=== PATIENT | male | born 1970 | race Caucasian/White ===

== ENCOUNTER 2020-05-21 13:39 | Emergency (ER) | payer BC, SELFPAY ==
[2020-05-21 13:52] VITALS: BP 138/105; PULSE 73; RESP 14; TEMP 37; O2SAT 98; BMI 35.4
--- NOTE | 2020-05-21 13:54 | W.ED.CHESTPA ---
HPI - Chest Pain General: Chief Complaint: Chest Pain Stated Complaint: cp, bp high Time Seen by Provider: 05/21/20 13:51 PFSH ED PFSH: Social History Smoking and tobacco status: former smoker Course Vital Signs: Vital signs: Vital Signs Temperature 98.6 F 05/21/20 13:52 Pulse Rate 73 05/21/20 13:52 Respiratory Rate 14 05/21/20 13:52 Blood Pressure 138/105 05/21/20 13:52 Pulse Oximetry 98 05/21/20 13:52 MDM - Chest Pain Lab Data: Labs: Lab Results 05/21/20 05/21/20 05/21/20 Range/Units 13:58 13:58 13:58 WBC 6.6 (4.0-10.0) 10^3/ uL RBC 4.68 (4.1-5.3) 10^6/u L Hgb 14.4 (11.7-16.6) g/dL Hct 44.5 (42.0-52.0) % MCV 95.1 H (80-94) fL MCH 30.8 (28.0-34.0) pg MCHC 32.4 (30.0-36.0) g/dL RDW 12.2 (12.1-15.1) % Plt Count 213 (130-400) 10^3/c mm MPV 12.1 H (7.4-10.4) fL Neut % (Auto) 52.8 % Lymph % (Auto) 34.3 % [place] % (Auto) 8.3 % Eos % (Auto) 3.8 % Baso % (Auto) 0.5 % Neut # (Auto) 3.5 (1.8-7.7) 10^3/u L Lymph # (Auto) 2.3 (0.8-4.8) 10^3/u L [place] # (Auto) 0.6 (0.2-0.9) 10^3/u L Eos # (Auto) 0.3 (0.0-0.8) 10^3/u L Baso # (Auto) 0.0 (0.0-0.1) 10^3/u L Nucleated RBC % (a uto) 0 % Nucleated RBCs # 0.0 /100WBC PT 11.50 (10.5-13.3) SECO NDS INR 0.82 (0.8-1.2) Sodium 140 (136-145) mmol/L Potassium 4.5 (3.5-5.1) mmol/L Chloride 103 (98-107) mmol/L Carbon Dioxide 25 (22-29) mmol/L Anion Gap 16.5 (5-19) BUN 11 (6-20) mg/dL Creatinine 0.9 (0.7-1.2) mg/dL GFR Calculation 88.6 L (90-130) mL/min Glucose 79 (65-115) mg/dL Calculated Osmolal ity 285 (285-295) mOsm/k g Calcium 10.0 (8.5-10.5) mg/dL Total Bilirubin 0.4 (0.15-1.2) mg/dL AST 17 (0-40) U/L ALT 20 (0-41) U/L Alkaline Phosphata se 61 (40-130) IU/L Troponin T Baselin e (0-15) ng/L Troponin T 120 Min [place] (0-15) ng/L Delta Troponin T (0-10) ABS# NT-Pro-B Natriuret Pep 212 H (0-125) pg/mL Total Protein 7.3 (6.6-8.7) g/dL Albumin 4.4 (3.5-5.2) g/dL Globulin 2.9 (1.3-4.6) g/dL 05/21/20 05/21/20 Range/Units 13:58 16:08 WBC (4.0-10.0) 10^3/ uL RBC (4.1-5.3) 10^6/u L Hgb (11.7-16.6) g/dL Hct (42.0-52.0) % MCV (80-94) fL MCH (28.0-34.0) pg MCHC (30.0-36.0) g/dL RDW (12.1-15.1) % Plt Count (130-400) 10^3/c mm MPV (7.4-10.4) fL Neut % (Auto) % Lymph % (Auto) % [place] % (Auto) % Eos % (Auto) % Baso % (Auto) % Neut # (Auto) (1.8-7.7) 10^3/u L Lymph # (Auto) (0.8-4.8) 10^3/u L [place] # (Auto) (0.2-0.9) 10^3/u L Eos # (Auto) (0.0-0.8) 10^3/u L Baso # (Auto) (0.0-0.1) 10^3/u L Nucleated RBC % (a uto) % Nucleated RBCs # /100WBC PT (10.5-13.3) SECO NDS INR (0.8-1.2) Sodium (136-145) mmol/L Potassium (3.5-5.1) mmol/L Chloride (98-107) mmol/L Carbon Dioxide (22-29) mmol/L Anion Gap (5-19) BUN (6-20) mg/dL Creatinine (0.7-1.2) mg/dL GFR Calculation (90-130) mL/min Glucose (65-115) mg/dL Calculated Osmolal ity (285-295) mOsm/k g Calcium (8.5-10.5) mg/dL Total Bilirubin (0.15-1.2) mg/dL AST (0-40) U/L ALT (0-41) U/L Alkaline Phosphata se (40-130) IU/L Troponin T Baselin e 6 (0-15) ng/L Troponin T 120 Min [place] 6.00 (0-15) ng/L Delta Troponin T 0 (0-10) ABS# NT-Pro-B Natriuret Pep (0-125) pg/mL Total Protein (6.6-8.7) g/dL Albumin (3.5-5.2) g/dL Globulin (1.3-4.6) g/dL Discharge Plan Discharge Patient Disposition: Home, Self-Care Clinical Impression: Chest pain Qualifiers: Chest pain type: unspecified Qualified Code(s): R07.9 - Chest pain, unspecified Condition: Stable Prescriptions: No Action omeprazole 40 mg capsule,delayed release(DR/EC) 40 mg PO DAILY RF: 0 Aspir-81 81 mg Tablet,Delayed Release (Dr/Ec) 81 mg PO DAILY RF: 0 nitroglycerin 0.4 mg tablet, sublingual 0.4 mg sublingual PRN PRN (Reason: CHEST PAINS) RF: 0 Vitamin D2 1,250 mcg (50,000 unit) Capsule 1,250 mcg PO DAILY RF: 0 fluoxetine 20 mg capsule 20 mg PO DAILY RF: 0 buspirone 15 mg tablet 15 mg PO DAILY RF: 0 Discharge Orders: Discharge Order (Routine); Ordered 05/21/20 Ordered By: Eric Marcelo Referrals: Damian Mayen DO [Primary Care Provider] - Coding Level of Care Code ED Vegetable Grader for Nicho Saucedo
--- NOTE | 2020-05-21 14:10 | ECG_ITS ---
[facility] ED Test Date: 2020-05-21 Pat Name: Jorge Kirkland Department: Room: Gender: Male Managing Editor: : 1970 Requested By: Eric Alcantar Order Number: [id number] Jodie MD: Mariluz Yi M.D. Measurements Intervals [place] Rate: 67 P: 52 TN: 125 QRS: 1 QRSD: 141 T: -8 QT: 403 QTc: 427 Interpretive Statements SINUS RHYTHM RIGHT BUNDLE BRANCH BLOCK [120+ ms QRS DURATION, UPRIGHT V1, 40+ ms S IN I/aVL/V4/V5/V6] Compared to ECG 05/13/2018 16:59:20 No significant changes Electronically Signed On 05-22-2020 18:31:44 CDT by Mariluz Yi M.D. [id number]
--- NOTE | 2020-05-21 14:10 | XRR_ITS ---
PROCEDURE INFORMATION: Exam: XR Chest, 1 View Exam date and time: 05/21/2020 2:11 PM Age: 50 years old Clinical indication: Chest pain; Additional info: Cp TECHNIQUE: Imaging protocol: XR of the chest Views: 1 view. COMPARISON: No relevant prior studies available. FINDINGS: Lungs: Unremarkable. No consolidation. Pleural space: Unremarkable. No pleural effusion. No pneumothorax. Heart/Mediastinum: Unremarkable. No cardiomegaly. Bones/joints: Unremarkable. XR/XR chest 1V portable [id number] IMPRESSION: No acute findings.
[2020-05-21 14:28] LABS: Basophils % 0.5 %; Eosinophils # 0.3 10^3/uL (0.0-0.8); Eosinophils % 3.8 %; Hematocrit 44.5 % (42.0-52.0); Hemoglobin 14.4 g/dL (11.7-16.6); Lymphocytes # 2.3 10^3/uL (0.8-4.8); Lymphocytes % 34.3 %; Mean Corpuscular HGB Conc 32.4 g/dL (30.0-36.0); Mean Corpuscular Hemoglobin 30.8 pg (28.0-34.0); Mean Corpuscular Volume 95.1 fL (80-94); Mean Platelet Volume 12.1 fL (7.4-10.4); Monocytes # 0.6 10^3/uL (0.2-0.9); Monocytes % 8.3 %; Neutrophils # 3.5 10^3/uL (1.8-7.7); Neutrophils % 52.8 %; Nucleated Red Blood Cells % 0 %; Platelet Count 213 10^3/cmm (130-400); Red Blood Count 4.68 10^6/uL (4.1-5.3); Red Cell Distribution Width 12.2 % (12.1-15.1); White Blood Count 6.6 10^3/uL (4.0-10.0)
[2020-05-21 14:36] LABS: INR 0.82 (0.8-1.2)
[2020-05-21 14:44] LABS: Troponin(5th) Baseline 6 ng/L (0-15)
[2020-05-21 14:53] LABS: Alanine Aminotransferase 20 U/L (0-41); Albumin Level 4.4 g/dL (3.5-5.2); Alkaline Phosphatase 61 IU/L (40-130); Anion Gap 16.5 (5-19); Aspartate Amino Transferase 17 U/L (0-40); Blood Urea Nitrogen 11 mg/dL (6-20); Carbon Dioxide 25 mmol/L (22-29); Chloride 103 mmol/L (98-107); Globulin 2.9 g/dL (1.3-4.6); Glomerular Filtration Rate 88.6 mL/min (90-130); Glucose 79 mg/dL (65-115); NT Pro B Type Natriuretic Pept 212 pg/mL (0-125); Osmolality Calculated 285 mOsm/kg (285-295); Potassium 4.5 mmol/L (3.5-5.1); Sodium 140 mmol/L (136-145); Total Bilirubin 0.4 mg/dL (0.15-1.2); Total Protein 7.3 g/dL (6.6-8.7)
--- NOTE | 2020-05-21 16:10 | ECG_ITS ---
[facility] Test Date: 2020-05-21 Pat Name: Jorge Kirkland Department: Room: Gender: Male Messenger Floorperson: : 1970 Requested By: Eric Alcantar Order Number: [id number] Jodie MD: Mariluz Yi M.D. Measurements Intervals [place] Rate: 66 P: 48 FL: 126 QRS: 6 QRSD: 142 T: -8 QT: 420 QTc: 441 Interpretive Statements SINUS RHYTHM INTRAVENTRICULAR CONDUCTION DELAY [130+ ms QRS DURATION] Compared to ECG 05/21/2020 13:49:28 Intraventricular conduction delay now present Right bundle-branch block no longer present Electronically Signed On 05-22-2020 18:40:20 CDT by Mariluz Yi M.D. [id number]
[2020-05-21 16:28] LABS: Troponin 5 2HR Delta 0 ABS# (0-10)
== END 2020-05-21 16:55 | disposition home or self-care (01) ==
PROVIDERS: Emergency Provider Family Medicine; PCP Internal Medicine
DX: R07.9 Chest pain, unspecified (principal); Z79.82 Long term (current) use of aspirin; Z87.891 Personal history of nicotine dependence
CPT/HCPCS: 12345; 71045; 80053; 83880; 84484; 85025; 85610; 93005; 99281; 99284

== ENCOUNTER 2021-04-19 09:25 | Emergency (ER) | payer OTHER, BC, SELFPAY ==
[2021-04-19 09:34] VITALS: BP 152/100; PULSE 77; RESP 15; TEMP 36.4; O2SAT 98; BMI 36.9
[2021-04-19 09:40] VITALS: BP 152/100; PULSE 78; RESP 21; O2SAT 97
--- NOTE | 2021-04-19 09:40 | ED_ITS ---
HPI - Chest Pain General: Chief Complaint: Chest Pain Stated Complaint: CP Time Seen by Provider: 04/19/21 09:36 History of Present Illness: HPI narrative: 50-year-old male presents emergency room with a complaint of chest pain. [facility] he was complaining of intermittent chest pain for the last month as well as some occasional dizziness. He felt this was stress related [facility]. He has not had any previously known history of coronary artery disease he is not diabetic. MD complaint: chest discomfort Onset (ago): hour(s) Timing of current episode: episodic Onset: during rest Pain location: left chest Pain radiation: none Severity: mild Quality: aching and heaviness Relieving factors: nothing Exacerbating factors: nothing Associated symptoms: Deny abdominal pain, dyspnea, fever(s), nausea or vomiting Review of Systems Const: Denies: fever(s), chills, body aches, change in appetite, fatigue or malaise ENMT: Denies: throat pain, ear or mastoid pain, nasal discharge or nasal congestion Card: Denies: chest pain, edema, dyspnea on exertion or orthopnea Resp: Denies: dyspnea, productive cough or non-productive cough GI: Denies: abdominal pain, nausea, vomiting, hematemesis, coffee ground emesis, diarrhea, constipation, bloating, hematochezia or melena : Denies: flank pain, dysuria, urinary frequency or urinary urgency Skin/Breast: Denies: rash or pruritus PFSH ED PFSH: Social History Smoking and tobacco status: light tobacco smoker Alcohol intake: never Substance/Drug Use: never Physical Exam Const: COMMON NORMALS: no acute distress GENERAL APPEARANCE: cooperative and comfortable ORIENTATION/CONSCIOUSNESS: Yes awake, Yes oriented to person, Yes oriented to place and Yes oriented to time HENMT: COMMON NORMALS: normocephalic, atraumatic and hearing grossly normal bilaterally HEAD & SCALP: normocephalic and atraumatic Neck/C-Spine: COMMON NORMALS: full ROM, no lymphadenopathy, supple and no JVD Lymph: LYMPHATIC: no lymphadenopathy noted and no lymphedema noted Resp: COMMON NORMALS: normal respiratory effort, No retractions, No use of accessory muscles and clear to auscultation bilaterally AUSCULTATION: clear to auscultation bilaterally Cardio: COMMON NORMALS: no JVD, regular rate, regular rhythm and No murmurs present (Cardio) RATE: regular rate RHYTHM: regular rhythm GI: COMMON NORMALS: Soft to palpation and No hepatosplenomegaly present AUSCULTATION: Yes normoactive bowel sounds PALPATION: Yes Soft to palpation, No Tenderness to palpation present (GI), No Guarding due to palpation present (GI) and Yes No hepatosplenomegaly present Extremity: COMMON NORMALS: normal to inspection, capillary refill normal, no clubbing, cyanosis or edema, no calf tenderness and no pedal edema Neuro: SENSORIUM/ORIENTATION: Yes oriented to person, Yes oriented to place and Yes oriented to time Skin: COMMON NORMALS: no rashes or lesions noted GENERAL SKIN EXAM: no rashes or lesions noted Course Vital Signs: Vital signs: Vital Signs Temperature 74 F L 04/19/21 12:00 Pulse Rate 67 04/19/21 13:25 Respiratory Rate 18 04/19/21 12:00 Blood Pressure 128/88 04/19/21 13:25 Pulse Oximetry 98 04/19/21 13:25 MDM - Chest Pain MDM Narrative: Medical decision making narrative: Reviewed serial enzymes the patient. We will go ahead and discharge him home [facility] unfortunately we can schedule that for him we will need to do that through the [facility]. Lab Data: Labs: Lab Results 04/19/21 04/19/21 04/19/21 Range/Units 09:51 09:51 09:51 WBC 6.1 (4.0-10.0) 10^3/ uL RBC 4.42 (4.1-5.3) 10^6/u L Hgb 14.1 (11.7-16.6) g/dL Hct 42.9 (42.0-52.0) % MCV 97.1 H (80-94) fL MCH 31.9 (28.0-34.0) pg MCHC 32.9 (30.0-36.0) g/dL RDW 12.6 (12.1-15.1) % Plt Count 190 (130-400) 10^3/c mm MPV 11.6 H (7.4-10.4) fL Neut % (Auto) 50.7 % Lymph % (Auto) 33.9 % [place] % (Auto) 10.2 % Eos % (Auto) 4.4 % Baso % (Auto) 0.5 % Neut # (Auto) 3.07 (1.8-7.7) 10^3/u L Lymph # (Auto) 2.1 (0.8-4.8) 10^3/u L [place] # (Auto) 0.6 (0.2-0.9) 10^3/u L Eos # (Auto) 0.3 (0.0-0.8) 10^3/u L Baso # (Auto) 0.0 (0.0-0.1) 10^3/u L Nucleated RBC % (a uto) 0 % Nucleated RBCs # 0.0 /100WBC Sodium Cancelled Potassium Cancelled Chloride Cancelled Carbon Dioxide Cancelled Anion Gap Cancelled BUN Cancelled Creatinine Cancelled GFR Calculation Cancelled Glucose Cancelled Calculated Osmolal ity Cancelled Calcium Cancelled Total Bilirubin Cancelled AST Cancelled ALT Cancelled Alkaline Phosphata se Cancelled Troponin T Baselin e Cancelled Troponin T 120 Min [place] (0-15) ng/L Delta Troponin T (0-10) ABS# Total Protein Cancelled Albumin Cancelled Globulin Cancelled 04/19/21 04/19/21 04/19/21 Range/Units 10:19 10:19 11:50 WBC (4.0-10.0) 10^3/ uL RBC (4.1-5.3) 10^6/u L Hgb (11.7-16.6) g/dL Hct (42.0-52.0) % MCV (80-94) fL MCH (28.0-34.0) pg MCHC (30.0-36.0) g/dL RDW (12.1-15.1) % Plt Count (130-400) 10^3/c mm MPV (7.4-10.4) fL Neut % (Auto) % Lymph % (Auto) % [place] % (Auto) % Eos % (Auto) % Baso % (Auto) % Neut # (Auto) (1.8-7.7) 10^3/u L Lymph # (Auto) (0.8-4.8) 10^3/u L [place] # (Auto) (0.2-0.9) 10^3/u L Eos # (Auto) (0.0-0.8) 10^3/u L Baso # (Auto) (0.0-0.1) 10^3/u L Nucleated RBC % (a uto) % Nucleated RBCs # /100WBC Sodium 139 Potassium 4.5 Chloride 105 Carbon Dioxide 25 Anion Gap 13.5 BUN 9 Creatinine 0.8 GFR Calculation 101.5 Glucose 83 Calculated Osmolal ity 286 Calcium 8.7 Total Bilirubin 0.4 AST 21 ALT 31 Alkaline Phosphata se 55 Troponin T Baselin e 6 Troponin T 120 Min [place] 6.00 (0-15) ng/L Delta Troponin T 0 (0-10) ABS# Total Protein 6.0 L Albumin 3.8 Globulin 2.2 Discharge Plan Discharge Patient Disposition: Home Clinical Impression: Atypical chest pain, Anxiety Condition: Stable Prescriptions: No Action Vitamin D3 25 mcg (1,000 unit) Capsule 25 mcg PO DAILY RF: 0 omeprazole 40 mg capsule,delayed release(DR/EC) 40 mg PO DAILY RF: 0 aspirin [Aspir-81] 81 mg Tablet,Delayed Release (Dr/Ec) 81 mg PO DAILY RF: 0 nitroglycerin 0.4 mg tablet, sublingual 0.4 mg sublingual PRN PRN (Reason: CHEST PAINS) RF: 0 fluoxetine 20 mg capsule 20 mg PO DAILY RF: 0 buspirone 15 mg tablet 15 mg PO DAILY RF: 0 Discharge Orders: Discharge ED (Routine); Ordered 04/19/21 Ordered By: Raúl Medina Referrals: Damian Mayen DO [Primary Care Provider] - Discharge Diet: Usual diet Discharge Activity: Resume usual activity Patient Instructions: Opioid Safety Activity Restrictions/Additional Instructions: Case management will call with an appointment for cardiac stress testing. Coding Level of Care Code ED Shade Cutter for Nicho Saucedo
--- NOTE | 2021-04-19 09:46 | XRR_ITS ---
PROCEDURE INFORMATION: Exam: XR Chest Exam date and time: 04/19/2021 9:52 AM Age: 50 years old Clinical indication: Chest pressure; Patient HX: Chest pain x 1 month TECHNIQUE: Imaging protocol: XR of the chest. Views: 1 view. COMPARISON: CR XR chest 1V portable [id number] 05/21/2020 2:19 PM FINDINGS: Lungs: Unremarkable. No consolidation. Pleural spaces: Unremarkable. No pleural effusion. No pneumothorax. Heart/Mediastinum: Unremarkable. No cardiomegaly. Bones/joints: Unremarkable. XR/XR chest 1V portable [id number] IMPRESSION: No significant abnormality.
[2021-04-19 10:01] LABS: Basophils % 0.5 %; Eosinophils # 0.3 10^3/uL (0.0-0.8); Eosinophils % 4.4 %; Hematocrit 42.9 % (42.0-52.0); Hemoglobin 14.1 g/dL (11.7-16.6); Lymphocytes # 2.1 10^3/uL (0.8-4.8); Lymphocytes % 33.9 %; Mean Corpuscular HGB Conc 32.9 g/dL (30.0-36.0); Mean Corpuscular Hemoglobin 31.9 pg (28.0-34.0); Mean Corpuscular Volume 97.1 fL (80-94); Mean Platelet Volume 11.6 fL (7.4-10.4); Monocytes # 0.6 10^3/uL (0.2-0.9); Monocytes % 10.2 %; Neutrophils # 3.07 10^3/uL (1.8-7.7); Neutrophils % 50.7 %; Nucleated Red Blood Cells % 0 %; Platelet Count 190 10^3/cmm (130-400); Red Blood Count 4.42 10^6/uL (4.1-5.3); Red Cell Distribution Width 12.6 % (12.1-15.1); White Blood Count 6.1 10^3/uL (4.0-10.0)
[2021-04-19 10:26] VITALS: BP 131/84; PULSE 72; RESP 26; O2SAT 94
[2021-04-19 10:46] LABS: Alanine Aminotransferase 31 U/L (0-41); Albumin Level 3.8 g/dL (3.5-5.2); Alkaline Phosphatase 55 IU/L (40-130); Anion Gap 13.5 (5-19); Aspartate Amino Transferase 21 U/L (0-40); Blood Urea Nitrogen 9 mg/dL (6-20); Calcium 8.7 mg/dL (8.5-10.5); Carbon Dioxide 25 mmol/L (22-29); Chloride 105 mmol/L (98-107); Globulin 2.2 g/dL (1.3-4.6); Glomerular Filtration Rate 101.5 mL/min (90-130); Glucose 83 mg/dL (65-115); Osmolality Calculated 286 mOsm/kg (285-295); Potassium 4.5 mmol/L (3.5-5.1); Sodium 139 mmol/L (136-145); Total Bilirubin 0.4 mg/dL (0.15-1.2)
[2021-04-19 11:27] LABS: Troponin(5th) Baseline 6 ng/L (0-15)
[2021-04-19 11:40] VITALS: BP 115/75; PULSE 75; RESP 18; O2SAT 96
[2021-04-19 12:00] VITALS: BP 119/78; PULSE 73; RESP 18; TEMP 23.3; O2SAT 96
[2021-04-19 12:20] LABS: Troponin 5 2HR Delta 0 ABS# (0-10)
[2021-04-19 13:25] VITALS: BP 128/88; PULSE 67; O2SAT 98
--- NOTE | 2021-04-19 15:48 | ECG_ITS ---
[facility] Test Date: 2021-04-19 Pat Name: Jorge Kirkland Department: Room: Gender: Male Youth Minister: : 1970 Requested By: Raúl Casarez Order Number: [id number] Jodie MD: Alex Abreu M.D. Measurements Intervals [place] Rate: 79 P: 61 [place]: 123 QRS: 16 QRSD: 140 T: 7 QT: 366 QTc: 420 Interpretive Statements SINUS RHYTHM RIGHT BUNDLE BRANCH BLOCK [120+ ms QRS DURATION, UPRIGHT V1, 40+ ms S IN I/aVL/V4/V5/V6] Compared to ECG 05/21/2020 16:50:56 Right bundle-branch block now present Intraventricular conduction delay no longer present Electronically Signed On 04-20-2021 0:06:17 CDT by Alex Abreu M.D. [id number]
--- NOTE | 2021-04-20 11:46 | DCPLANNER ---
emergency medical service manager had message to schedule an out patient stress test for patient. emergency medical service manager faxed signed order to centralized scheduling. emergency medical service manager will call for appointment information.
--- NOTE | 2021-04-26 08:57 | DCPLANNER ---
Patient has a follow up appointment scheduled for Friday, May 18, 2021 at 10:45 for an outpatient stress test.
--- NOTE | 2021-06-26 11:42 | DCPLANNER ---
Patient had a follow up appointment scheduled for 05.18.21 for an outpatient stress test- patient did attend appointment.
== END 2021-04-19 13:25 | disposition home or self-care (01) ==
PROVIDERS: Emergency Provider Family Medicine; PCP Internal Medicine
DX: R07.89 Other chest pain (principal); F41.9 Anxiety disorder, unspecified; Z79.82 Long term (current) use of aspirin; F17.210 Nicotine dependence, cigarettes, uncomplicated
CPT/HCPCS: 36415; 71045; 80053; 84484; 85025; 93005; 99284

== ENCOUNTER 2021-05-18 08:24 | Outpatient (CLI) | payer OTHER, SELFPAY ==
[2021-05-18 08:47] VITALS: BMI 36.9
--- NOTE | 2021-05-18 08:47 | NMCV_ITS ---
NM nena perf SPECT r/s* [id number] Jorge Kirkland Age: 51 Gender: M : 1970 Exam Date: 05/18/2021 09:38 Ordering Phys: Raúl Medina DO Technologist: ISIDORO Lowe Exam Location: [facility] Indications: CHEST PAIN STRESS TEST Please see separate stress test report in [facility] for full findings IMAGE PROTOCOL Rest/Stress 1 Lexiscan Day Radiopharmaceutical Dose (mCi) Administration Site Administered by Rest: Tc-99m 10.5 IV ISIDORO Mclean Sestamibi Stress:Tc-99m 33.0 IV ISIDORO Mclean Sestamibi Rest: 18-May-2021 60 Discovery 630 Stress: 18-May-2021 30 Discovery 630 0.4mg Lexiscan. Images obtained in supine and prone position. SPECT RESULTS Technical Quality: Excellent Raw Data Analysis: Image Corrections: No attenuation or motion correction applied Summed Stress Score: 0 Summed Rest Score: 0 Summed Difference Score: 0 PERFUSION FINDINGS SPECT images demonstrate homogeneous tracer distribution throughout the myocardium. FUNCTIONAL RESULTS (calculated via Gated SPECT) Stress Image LV EF (%): 66 Stress EDV (mL):128 TID: 1.1 Stress ESV (mL):44 FUNCTIONAL FINDINGS: The left ventricle is normal in size. Transient Ischemia Dilatation of 1.1. There is normal left ventricular systolic function. The left ventricular ejection fraction is normal with a value of 66%. There is normal left ventricular wall thickening with no regional wall motion abnormality. Normal end-diastolic and end-systolic volumes. IMPRESSIONS 1. Myocardial perfusion imaging is normal. 2. Overall left ventricular systolic function is normal without regional wall motion abnormalities. 3. The left ventricular ejection fraction is normal with a value of 66%. 4. No significant EKG changes with Lexiscan infusion. Refer to separate report for details. 5. Scan indicates low risk for cardiac events. 6. No significant change when compared to study dated 11/25/2019. Mariluz Yi MD (Electronically Signed) Final Date: 21 May 2021 13:02 S
--- NOTE | 2021-05-18 08:47 | ECG_ITS ---
[facility] Test Date: 2021-05-18 Pat Name: Jorge Kirkland Department: Room: Gender: Male Hospital Nurse: : 1970 Requested By: Raúl Casarez Order Number: [id number] Jodie MD: Mariluz Yi M.D. Interpretive Statements Name of study: Lexiscan sestamibi myocardial perfusion imaging Indication: Chest pain PROCEDURE: At the baseline, the blood pressure was 138/96 mmHg with a heart rate of 68 bpm. The electrocardiogram showed normal sinus rhythm, normal axis. Right bundle branch block. The Lexiscan was infused over a period of 20 seconds. A total of 0.4 milligrams of Lexiscan was infused. The stress phase was continued for a total of 5 minutes. Heart rate at the end of the stress phase was 83 bpm with a blood pressure of 146/97 mmHg. The EKG at the peak infusion revealed sinus rhythm with no significant ST-T wave changes. The study was terminated due to protocol completion. Sestamibi was injected 20 seconds after the Lexiscan infusion. Blood pressure at the end of the recovery phase was 147/96 mmHg with a heart rate of 79 beats per minute. CONCLUSION: 1. No significant EKG changes with the LexiScan infusion. 2. No LexiScan induced chest pain or cardiac arrhythmia. 3. Normal blood pressure and heart rate response. 4. Sestamibi/sestamibi perfusion scan pending; see separate report. Electronically Signed On 05-21-2021 12:58:39 CDT by Mariluz Yi M.D. [id number]
[2021-05-18] MEDS: regadenoson 0.4 Mg/5 ml Syringe IVP (10:10)
[2021-05-18 10:28] VITALS: BP 147/96; PULSE 78
== END 2021-05-18 08:25 | disposition home or self-care (01) ==
LOC: CDL 08:26
PROVIDERS: PCP Internal Medicine; Visit Provider Family Medicine
DX: R07.9 Chest pain, unspecified (principal)
CPT/HCPCS: 78452; 93017; A9500; J2785

== ENCOUNTER 2022-04-11 08:45 | Day surgery (SDC) | payer OTHER, SELFPAY ==
[2022-04-09 08:16] VITALS: BMI 38.4
[2022-04-11 09:33] VITALS: BP 136/84; PULSE 65; RESP 18; TEMP 36.7; O2SAT 94
[2022-04-11] MEDS: sodium chloride 0.9% 1,000 ML 30 ML IV (09:53)
--- NOTE | 2022-04-11 10:09 | ANES.PREANE2 ---
Pre-Anesthetic Assessment Height/Weight: Height 1.75 m Weight 117.934 kg Temp Pulse Resp BP Pulse Ox 98.1 F 65 18 136/84 94 04/11/22 09:33 04/11/22 09:33 04/11/22 09:33 04/11/22 09:33 04/11/22 09:33 Preop Diagnosis: History of colon polyps Operation Date: 04/11/22 10:45 Proposed Procedures p Colonoscopy 70214/[id number](Not Applicable) - Zane Solano MD Familial anesthetic complications: None Was Beta Gisell taken within 24 hours: N/A Was Clonidine taken within 24 hours: N/A Last intake: Intake Last Liquid Date 04/10/22 Last Liquid Time 22:30 Last Solid Date 04/09/22 Last Solid Time 18:00 Social Tobacco and No alcohol Exam alert, oriented x 3, clear to auscultation bilaterally and regular rate & rhythm Airway Submandibular: within normal limits Cervical ROM: within normal limits Mallampati: Class II Comments: Comments: Missing most teeth Loose right lower molar History/ROS No significant complaints Pulmonary None reported CV/HEM Hypertension METS > 4 None reported Hepatic None reported GI None reported Metabolic None reported Musc/skel None reported Neuropsych None reported Anesthetic Plan ASA status: 3 (51 year old smoker with htn and GERD ) Anesthesia: Anesthesia Evaluation, General and MAC Other: I discussed with the patient risks, goals, and benefits of MAC and general anesthesia. We discussed spectrum of MAC anesthesia including conversion to general as well as possibility of recall of intraoperative stimuli including discomfort/pain. Patient agrees to proceed with MAC. Risk of > 500 ml blood loss (7ml/kg in children): No Medications/Allergies Home Medications Medication Instructions Recorded Confirmed Last Taken Type aspirin 81 mg tablet,delayed 81 mg PO DAILY 05/21/20 04/10/22 04/09/22 History release (Aspir-) buspirone 15 mg tablet 15 mg PO DAILY 05/21/20 04/11/22 04/10/22 History fluoxetine 20 mg capsule 20 mg PO DAILY 05/21/20 04/11/22 04/10/22 History nitroglycerin 0.4 mg sublingual 0.4 mg SUBLINGUAL PRN PRN 05/21/20 04/11/22 1 Year Ago History tablet ~04/11/21 cholecalciferol (vitamin D3) 25 25 mcg PO DAILY 04/19/21 04/11/22 04/10/22 History mcg (1,000 unit) capsule (Vitamin D3) amlodipine 10 mg tablet 10 mg PO DAILY 05/30/21 04/11/22 04/11/22 05:00 History divalproex 500 mg tablet,extended 500 mg PO BID tab 05/30/21 04/11/22 04/10/22 History release 24 hr calcium carbonate 600 mg calcium 600 mg PO DAILY 04/10/22 04/11/22 04/10/22 History (1,500 mg) tablet (Calcium) diclofenac sodium 1 % topical gel 1 ea TOPICAL DAILY 04/10/22 04/11/22 04/08/22 History lidocaine 5 % topical ointment 1 applic TOPICAL DAILY 04/10/22 04/11/22 04/08/22 History rjoofkujvjqa-wbe-ftemd acid-vit 1 tab PO DAILY 04/10/22 04/11/22 04/10/22 History K-lycop 400 mcg-20 mcg-370 mcg tablet (Men's 50 Plus Multivitamin) pantoprazole 40 mg tablet,delayed 40 mg PO DAILY 04/10/22 04/11/22 04/10/22 05:00 History release Allergies Allergy/AdvReac Type Severity Reaction Status Date / Time No Known Allergies Allergy Verified 04/11/22 10:25 Current Medications Generic Name Dose Route Start Last Admin Trade Name Freq PRN Reason Stop Dose Admin Sodium Chloride 1,000 mls @ 30 mls/hr 04/11/22 09:00 04/11/22 09:53 Sodium Chloride 0.9% IV 04/12/22 08:59 30 mls/hr .Q24H VICKIE Administration PFSH Anesthesia Medical History Hypertension Tobacco abuse Family History Other Diabetes Social History Smoking and tobacco status: former smoker Alcohol intake: never Data Anesthesia Cardiac Studies: Sestamibi Stress Test (Cardiology) 05/18/21
--- NOTE | 2022-04-11 10:24 | P.HP_ITS ---
Same Day Surgery H&P Indication for Procedure/HPI DATE OF PROCEDURE: April 11, 2022 CHIEF COMPLAINT/INDICATIONFOR SURGICAL PROCEDURE: History of colon polyps PREOP DIAGNOSIS: History of colon polyps PLANNED PROCEDURE: Operation Date: 04/11/22 10:45 Proposed Procedures p Colonoscopy 21861/z86.010(Not Applicable) - Zane Solano MD 02/11/2022 This is a pleasant 51 years old gentleman presents with a history of colon cancer of his dad at age of 60 and he at age of 64.? Also he does report that he had colonoscopy about 3 years ago and polyps were removed.? Patient reports that he have hemorrhoids per his description and gets irritation at the anal area. Patient is referred to me today for surveillance colonoscopy.? He denies bleeding per rectum. 04/11/22 Patient comes today for surveillance colonoscopy ROS All systems have been reviewed negative except as for the above or per problem list. Medications/Allergies* Home Medications Medication Instructions Recorded Confirmed Type aspirin 81 mg tablet,delayed 81 mg PO DAILY 05/21/20 04/10/22 History release (Aspir-) buspirone 15 mg tablet 15 mg PO DAILY 05/21/20 04/11/22 History fluoxetine 20 mg capsule 20 mg PO DAILY 05/21/20 04/11/22 History nitroglycerin 0.4 mg sublingual 0.4 mg SUBLINGUAL PRN PRN 05/21/20 04/11/22 History tablet cholecalciferol (vitamin D3) 25 25 mcg PO DAILY 04/19/21 04/11/22 History mcg (1,000 unit) capsule (Vitamin D3) amlodipine 10 mg tablet 10 mg PO DAILY 05/30/21 04/11/22 History divalproex 500 mg tablet,extended 500 mg PO BID tab 05/30/21 04/11/22 History release 24 hr calcium carbonate 600 mg calcium 600 mg PO DAILY 04/10/22 04/11/22 History (1,500 mg) tablet (Calcium) diclofenac sodium 1 % topical gel 1 ea TOPICAL DAILY 04/10/22 04/11/22 History lidocaine 5 % topical ointment 1 applic TOPICAL DAILY 04/10/22 04/11/22 History derzetzvtkdj-vrh-hmjxs acid-vit 1 tab PO DAILY 04/10/22 04/11/22 History K-lycop 400 mcg-20 mcg-370 mcg tablet (Men's 50 Plus Multivitamin) pantoprazole 40 mg tablet,delayed 40 mg PO DAILY 04/10/22 04/11/22 History release Allergies/Adverse Reactions Allergy/AdvReac Type Severity Reaction Status Date / Time No Known Allergies Allergy Verified 04/11/22 10:25 Current Medications: Generic Name Dose Route Start Last Admin Trade Name Glennq PRN Reason Stop Dose Admin Sodium Chloride 1,000 mls @ 30 mls/hr 04/11/22 09:00 04/11/22 09:53 Sodium Chloride 0.9% IV 04/12/22 08:59 30 mls/hr .Q24H VICKIE Administration Pertinent History/Comorbid Conditions* Medical History (Updated 02/12/22 @ 15:59 by Zane Solano MD) Hypertension Tobacco abuse Family History (Updated 06/03/21 @ 21:54 by Barron Ruiz M.D) Diabetes Social History Smoking and tobacco status: former smoker Alcohol intake: never Pertinent Exam Findings alert, oriented x 3, regular rate & rhythm and procedure specific exam findings (Abdominal examination nontender nondistended soft) Recommendations Surgery/Procedure today (Surveillance colonoscopy) Coding Level of Care Code Acute 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
[2022-04-11 11:05] VITALS: BP 91/70; PULSE 70; RESP 18; TEMP 36.1; O2SAT 96
--- NOTE | 2022-04-11 11:08 | ANE.PACU2 ---
Documented by User: Jody Lee CRNA 04/11/22 11:08 Inpatient post-anesthesia follow up: Airway intact: Yes Vital signs: Temperature 98.1 F Pulse Rate 65 Respiratory Rate 18 Blood Pressure 136/84 Pulse Oximetry 94 Oxygen Delivery Me thod Room Air Oxygen Flow Rate Fraction of Inspir ed Oxygen Hydration adequate: Yes Nausea and vomiting: No Pain level: 1 Mental status: Baseline
[2022-04-11 11:20] VITALS: BP 99/76; PULSE 68; RESP 18; O2SAT 100
== END 2022-04-11 11:38 | disposition home or self-care (01) ==
PROVIDERS: PCP Internal Medicine; Visit Provider Surgery
PROC: 0DJD8ZZ Inspection of Lower Intestinal Tract, Via Natural or Artificial Opening Endoscopic (ICD-10-PCS; CPT 45378; principal; 2022-04-11 10:45)
DX: Z12.11 Encounter for screening for malignant neoplasm of colon (principal); Z80.0 Family history of malignant neoplasm of digestive organs; Z86.010 Personal history of colon polyps; D12.8 Benign neoplasm of rectum; K57.30 Diverticulosis of large intestine without perforation or abscess without bleeding; Z79.82 Long term (current) use of aspirin; I10 Essential (primary) hypertension; Z87.891 Personal history of nicotine dependence; K21.9 Gastro-esophageal reflux disease without esophagitis
CPT/HCPCS: 45385; 88305; J2704; J7030

== ENCOUNTER → 2022-04-24 11:21 | Outpatient (BNVA) | payer OTHER, SELFPAY | PROVIDERS: PCP Internal Medicine; Visit Provider Surgery | DX: Z09 Encounter for follow-up examination after completed treatment for conditions other than malignant neoplasm (principal); K57.31 Diverticulosis of large intestine without perforation or abscess with bleeding | CPT/HCPCS: 99213 ==

== ENCOUNTER 2022-05-02 08:47 | Outpatient (CLI) | payer OTHER, SELFPAY ==
--- NOTE | 2022-05-02 12:22 | PFTS_ITS ---
Date of Study:05/02/22 Date of Dictation: 05/03/2022 MECHANICS: Prebronchodilator forced vital capacity (FVC) is normal. Prebronchodilator forced expiratory volume in one second (FEV1) is normal. FEV1/FVC is normal. There is no postbronchodilator study FLOW VOLUME LOOP: Normal LUNG VOLUMES: Not measured DIFFUSING CAPACITY FOR CARBON MONOXIDE: Not measured . INTERPRETATION: The prebronchodilator spirometry is normal. Postbronchodilator study not performed. [facility]
== END 2022-05-02 08:48 | disposition home or self-care (01) ==
PROVIDERS: PCP Internal Medicine; Visit Provider Chiropractor
DX: J45.998 Other asthma (principal); F17.210 Nicotine dependence, cigarettes, uncomplicated
CPT/HCPCS: 94010

== ENCOUNTER → 2022-05-30 12:53 | Outpatient (BNVA) | payer OTHER, SELFPAY | PROVIDERS: PCP Internal Medicine; Visit Provider Internal Medicine | DX: I10 Essential (primary) hypertension (principal); Z87.891 Personal history of nicotine dependence | CPT/HCPCS: 99213 ==

== ENCOUNTER 2023-08-26 14:04 | Outpatient (RCR) | payer OTHER, SELFPAY | END 2023-08-30 23:59 | disposition home or self-care (01) | LOC: SPT 14:04 | PROVIDERS: PCP Family Medicine; Visit Provider Family Medicine | DX: M25.561 Pain in right knee (principal) | CPT/HCPCS: 97161 ==

== ENCOUNTER 2023-08-31 06:00 | Outpatient (RCR) | payer OTHER, SELFPAY | END 2023-09-30 23:59 | disposition home or self-care (01) | LOC: SPT 06:00 | PROVIDERS: PCP Family Medicine; Visit Provider Family Medicine | DX: S83.511D Sprain of anterior cruciate ligament of right knee, subsequent encounter (principal); X58.XXXD Exposure to other specified factors, subsequent encounter; M25.561 Pain in right knee | CPT/HCPCS: 97110 ==

== ENCOUNTER → 2024-02-17 07:58 | Outpatient (BNVA) | payer OTHER, SELFPAY | PROVIDERS: PCP Family Medicine; Referring Provider Family Medicine; Visit Provider Surgery | DX: Z12.11 Encounter for screening for malignant neoplasm of colon (principal) | CPT/HCPCS: 99213 ==

== ENCOUNTER 2024-06-10 07:13 | Day surgery (SDC) | payer OTHER, SELFPAY ==
[2024-06-10 07:23] VITALS: BP 138/109; PULSE 82; RESP 18; TEMP 36.2; O2SAT 95; BMI 38.4
--- NOTE | 2024-06-10 07:32 | W.PM.OPSFHP ---
Same Day Surgery H&P Indication for Procedure/HPI DATE OF PROCEDURE: June 10, 2024 CHIEF COMPLAINT/INDICATIONFOR SURGICAL PROCEDURE: Need for screening colonoscopy PREOP DIAGNOSIS: Need for screening colonoscopy PLANNED PROCEDURE: Operation Date: 06/10/24 08:20 Proposed Procedures p Colonoscopy 51212, G0105, Z80.0, Z86.010(Not Applicable) - Romain Peña MD Medications/Allergies* Home Medications Medication Instructions Recorded Confirmed Type aspirin 81 mg tablet,delayed 81 mg PO DAILY 05/21/20 06/10/24 History release (Aspir-) buspirone 15 mg tablet 15 mg PO DAILY 05/21/20 06/10/24 History fluoxetine 20 mg capsule 20 mg PO DAILY 05/21/20 06/10/24 History nitroglycerin 0.4 mg sublingual 0.4 mg sublingual PRN PRN CHEST 05/21/20 06/10/24 History tablet PAINS cholecalciferol (vitamin D3) 25 25 mcg PO DAILY 04/19/21 06/10/24 History mcg (1,000 unit) capsule (Vitamin D3) amlodipine 10 mg tablet 10 mg PO DAILY 05/30/21 06/10/24 History divalproex 500 mg tablet,extended 500 mg PO BID 05/30/21 06/10/24 History release 24 hr (Depakote ER) calcium carbonate (Calcium 600) 600 mg PO DAILY 04/10/22 06/10/24 History diclofenac sodium 1 % topical gel 1 ea topical DAILY 04/10/22 06/10/24 History lidocaine 5 % topical ointment 1 applic topical DAILY 04/10/22 06/10/24 History iccyvvnnxdlx-wzb-dygdw acid-vit 1 tab PO DAILY 04/10/22 06/10/24 History K-lycop 400 mcg-20 mcg-370 mcg tablet (Men's 50 Plus Multivitamin) pantoprazole 40 mg tablet,delayed 40 mg PO DAILY 04/10/22 06/10/24 History release Allergies/Adverse Reactions Allergy/AdvReac Type Severity Reaction Status Date / Time No Known Allergies Allergy Verified 06/08/24 10:29 Pertinent History/Comorbid Conditions* Medical History (Updated 04/26/22 @ 10:30 by Zane Solano MD) Tobacco abuse Hypertension Family History (Updated 06/03/21 @ 21:54 by Barron Ruiz M.D) Diabetes Social History Smoking and tobacco/nicotine status: current every day tobacco/nicotine user cigarettes Alcohol intake: never Substance/Drug Use: never Pertinent Exam Findings alert, oriented x 3 and clear to auscultation bilaterally Recommendations Surgery/Procedure today Coding Level of Care Code Acute Code for Chg Sheryl
[2024-06-10] MEDS: sodium chloride 0.9% 1,000 ML 30 ML IV (07:40)
--- NOTE | 2024-06-10 07:45 | ANES.PREANE2 ---
Pre-Anesthetic Assessment Height/Weight: Height 1.75 m Weight 117.934 kg Temp Pulse Resp BP Pulse Ox O2 Del Method 97.1 F L 82 18 138/109 95 Room Air 06/10/24 07:23 06/10/24 07:23 06/10/24 07:23 06/10/24 07:23 06/10/24 07:23 06/10/24 07:23 Preop Diagnosis: Need for screening colonoscopy Operation Date: 06/10/24 08:20 Proposed Procedures p Colonoscopy 49643, G0105, Z80.0, Z86.010(Not Applicable) - Romain Peña MD Was Beta Gisell taken within 24 hours: N/A Was Clonidine taken within 24 hours: N/A Last intake: Intake Last Liquid Date 06/09/24 Last Liquid Time 21:00 Last Solid Date 06/08/24 Last Solid Time 22:00 Social No alcohol and No tobacco Exam alert, oriented x 3, clear to auscultation bilaterally and regular rate & rhythm Airway Submandibular: within normal limits Cervical ROM: within normal limits Mallampati: Class I Comments: Comments: dentures removed History/ROS No significant history except as noted and No significant complaints Pulmonary None reported CV/HEM Hypertension Nitro tablets, hasn't taken any in over 5 years. denies heart attacks None reported Hepatic None reported GI Gastroesophageal Reflux Disease Metabolic Morbid Obesity [facility] [place] None reported Neuropsych Anxiety and Depression Anesthetic Plan ASA status: 2 Anesthesia: Anesthesia Evaluation and MAC Risk of > 500 ml blood loss (7ml/kg in children): Yes, adequate IV access and fluids planned Medications/Allergies Home Medications Medication Instructions Recorded Confirmed Last Taken Type aspirin 81 mg tablet,delayed 81 mg PO DAILY 05/21/20 06/10/24 06/08/24 History release (Aspir-) buspirone 15 mg tablet 15 mg PO DAILY 05/21/20 06/10/24 06/08/24 History fluoxetine 20 mg capsule 20 mg PO DAILY 05/21/20 06/10/24 06/08/24 History nitroglycerin 0.4 mg sublingual 0.4 mg sublingual PRN PRN CHEST 05/21/20 06/10/24 1 Year Ago History tablet PAINS ~04/11/21 cholecalciferol (vitamin D3) 25 25 mcg PO DAILY 04/19/21 06/10/24 06/08/24 History mcg (1,000 unit) capsule (Vitamin D3) amlodipine 10 mg tablet 10 mg PO DAILY 05/30/21 06/10/24 06/08/24 History divalproex 500 mg tablet,extended 500 mg PO BID 05/30/21 06/10/24 06/08/24 History release 24 hr (Depakote ER) calcium carbonate (Calcium 600) 600 mg PO DAILY 04/10/22 06/10/24 06/08/24 History diclofenac sodium 1 % topical gel 1 ea topical DAILY 04/10/22 06/10/24 06/08/24 History lidocaine 5 % topical ointment 1 applic topical DAILY 04/10/22 06/10/24 06/08/24 History cwkazsbqodjq-dvq-khipd acid-vit 1 tab PO DAILY 04/10/22 06/10/24 06/08/24 History K-lycop 400 mcg-20 mcg-370 mcg tablet (Men's 50 Plus Multivitamin) pantoprazole 40 mg tablet,delayed 40 mg PO DAILY 04/10/22 06/10/24 06/08/24 History release Allergies Allergy/AdvReac Type Severity Reaction Status Date / Time No Known Allergies Allergy Verified 06/08/24 10:29 Current Medications Generic Name Dose Route Start Last Admin Trade Name Freq PRN Reason Stop Dose Admin Sodium Chloride 1,000 mls @ 30 mls/hr 06/10/24 07:30 06/10/24 07:40 Sodium Chloride 0.9% IV 30 mls/hr .Q24H VICKIE Administration PFSH Anesthesia Medical History Tobacco abuse Hypertension Family History Other Diabetes Social History (Updated 02/17/24 @ 08:[address]) Smoking and tobacco/nicotine status: current every day tobacco/nicotine user cigarettes Alcohol intake: never Substance/Drug Use: never Data Anesthesia Cardiac Studies: Sestamibi Stress Test (Cardiology) 05/18/21
[2024-06-10 08:37] VITALS: BP 103/67; PULSE 73; RESP 16; TEMP 37.1; O2SAT 94
[2024-06-10 08:57] VITALS: BP 103/71; PULSE 66; RESP 18; O2SAT 98
--- NOTE | 2024-06-10 15:27 | ANE.PACU2 ---
Inpatient post-anesthesia follow up: Airway intact: Yes Vital signs: Temperature 98.7 F Pulse Rate 66 Respiratory Rate 18 Blood Pressure 103/71 Pulse Oximetry 98 Oxygen Delivery Me thod Room Air Oxygen Flow Rate 2 Fraction of Inspir ed Oxygen Hydration adequate: Yes Nausea and vomiting: No Pain level: Other (controlled) Mental status: Baseline Additional Comments: no apparent anesthetic complications noted
== END 2024-06-10 09:20 | disposition home or self-care (01) ==
PROVIDERS: PCP Family Medicine; Visit Provider Surgery
PROC: 0DJD8ZZ Inspection of Lower Intestinal Tract, Via Natural or Artificial Opening Endoscopic (ICD-10-PCS; CPT 45378; principal; 2024-06-10 08:20)
DX: Z12.11 Encounter for screening for malignant neoplasm of colon (principal); K63.5 Polyp of colon; Z79.82 Long term (current) use of aspirin; I10 Essential (primary) hypertension; F17.210 Nicotine dependence, cigarettes, uncomplicated; K21.9 Gastro-esophageal reflux disease without esophagitis; E66.01 Morbid (severe) obesity due to excess calories; Z68.38 Body mass index [BMI] 38.0-38.9, adult
CPT/HCPCS: 45385; 88305; J2704; J7030

== ENCOUNTER → 2024-06-22 13:21 | Outpatient (BNVA) | payer OTHER, SELFPAY | PROVIDERS: PCP Family Medicine; Visit Provider Surgery | DX: Z09 Encounter for follow-up examination after completed treatment for conditions other than malignant neoplasm (principal) | CPT/HCPCS: 99213 ==

== ENCOUNTER 2025-09-26 09:49 | Outpatient (CLI) | payer OTHER, SELFPAY | END 2025-09-26 09:50 | disposition home or self-care (01) | LOC: SLEEP 09:51 | PROVIDERS: PCP Family Medicine; Referring Provider Family Medicine; Visit Provider Internal Medicine Pulmonary Disease | DX: R53.83 Other fatigue (principal); R06.83 Snoring | CPT/HCPCS: G0399 ==